=== PATIENT | male | born 1945 | race Caucasian/White ===

== ENCOUNTER 2020-02-13 10:23 | Outpatient (CLI) | payer OTHER, SELFPAY ==
[2020-02-13] VITALS (7 sets, daily range): PULSE 76–93; O2SAT 84–92
--- NOTE | 2020-02-13 11:51 | HOMEO2EVAL ---
Home Oxygen Evaluation RC: Home Oxygen (O2) Evaluation Start: 02/13/20 11:46 Freq: Status: Active Protocol: RPE Activity Type Activity Date Activity User E-Sign Co-Sign Detail Recorded Client Recorded Date Recorded By Document 02/13/20 11:00 KRM [email or web address] 02/13/20 11:51 KRM Document 02/13/20 11:02 KRM [email or web address] 02/13/20 11:51 KRM Document 02/13/20 11:03 KRM [email or web address] 02/13/20 11:51 KRM Document 02/13/20 11:05 KRM [email or web address] 02/13/20 11:51 KRM Document 02/13/20 11:07 KRM [email or web address] 02/13/20 11:51 KRM Document 02/13/20 11:09 KRM [email or web address] 02/13/20 11:51 KRM Document 02/13/20 11:14 KRM [email or web address] 02/13/20 11:51 KRM 02/13/20 02/13/20 02/13/20 11:00 11:02 11:03 Home O2 Evaluation Test Phase Resting Exercise Exercise Oxygen Delivery Room Air Room Air Nasal Cannula Oxygen Flow Rate (L/min) 1 Pulse Oximetry (90-100 %) 90 84 L 84 L Pulse Rate (60-100 beats/min) 84 76 76 Activity Tolerance Good Good Ambulation Distance (feet) Home Oxygen Evaluation Comments Treatment Charges O2 Evaluation 02/13/20 02/13/20 02/13/20 11:05 11:07 11:09 Home O2 Evaluation Test Phase Exercise Exercise Exercise Oxygen Delivery Nasal Cannula Nasal Cannula Nasal Cannula Oxygen Flow Rate (L/min) 2 3 4 Pulse Oximetry (90-100 %) 86 L 87 L 90 Pulse Rate (60-100 beats/min) 93 93 92 Activity Tolerance Good Good Good Ambulation Distance (feet) 600 Home Oxygen Evaluation Comments 4 with activity Treatment Charges 02/13/20 11:14 Home O2 Evaluation Test Phase Resting Oxygen Delivery Room Air Oxygen Flow Rate (L/min) Pulse Oximetry (90-100 %) 92 Pulse Rate (60-100 beats/min) 88 Activity Tolerance Ambulation Distance (feet) Home Oxygen Evaluation Comments Treatment Charges
--- NOTE | 2020-02-13 16:09 | P.PCNPFT_ITS ---
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 Spirometry: FEV1 is moderately decreased 64%, 2.09 L. FVC is 100%, normal. FEV1% is decreased 42%. There is no change with bronchodilator. Lung volumes: TLC is 90%, normal. RV is 63%. RV/TLC is not increased. No air trapping. Airway resistance is increased 305%. Diffusion: DLCO is moderately decreased 51%. Flow volume loop: Scooping of the expiratory limb. IMPRESSION: Moderate obstructive ventilatory impairment, increased airway resistance and moderate diffusion impairment without response to bronchodilator. There is no restriction noted, with normal total lung capacity. There is a history of asbestos exposure and silica exposure. Silica exposure can show an overlap of obstruction and restriction. Clinical correlation is recommended. Old studies in the system are not available for comparison. Penny Carreno MD
== END 2020-02-13 10:24 | disposition home or self-care (01) ==
PROVIDERS: Visit Provider Nurse Practitioner Family
DX: J44.9 Chronic obstructive pulmonary disease, unspecified (principal); R94.2 Abnormal results of pulmonary function studies
CPT/HCPCS: 94060; 94618; 94726; 94729

== ENCOUNTER 2020-02-21 10:08 | Outpatient (CLI) | payer OTHER, SELFPAY ==
--- NOTE | ~2020-02-21 | CT_ITS ---
EXAMINATION: CT lung screening DATE: 02/21/2020 10:48 INDICATION: Personal history of tobacco dependence, prior smoker with 100 pack year history TECHNIQUE: Computed tomography (CT) of the chest was performed without intravenous contrast. The dose -length product (DLP) was 152.77 mGy-cm. Automated exposure control and iterative reconstruction tech [employer] were employed. COMPARISON: 10/28/2018 FINDINGS: There is severe emphysema. There is a stable 3 mm nodule in the left major fissure. Scarrin g is noted in the lung apices. No new pulmonary nodule is identified. There is mild dependent atelect asis. No focal airspace opacities are identified. No pathologically enlarged thoracic lymph nodes are identified. The heart size is normal. Calcified pulmonary nodules and calcified bilateral hilar lymp h nodes are consistent with old granulomatous disease. Calcified coronary artery atherosclerosis is n oted. A compression fracture of the T11 vertebral body is new since the prior examination. 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 IMPRESSION: 1. Lung-RADS category 2S: Benign appearance or behavior. Continue annual screening with noncontrast l ow-dose chest CT in 12 months. 2. Interval T11 compression fracture. Reviewed, dictated and finalized at location A. IMPRESSION: 1. Lung-RADS category 2S: Benign appearance or behavior. Continue annual screen ing with noncontrast low-dose chest CT in 12 months. 2. Interval T11 compression fracture.
== END 2020-02-21 10:09 | disposition home or self-care (01) ==
PROVIDERS: PCP Nurse Practitioner; Visit Provider Internal Medicine Critical Care Medicine
DX: Z87.891 Personal history of nicotine dependence (principal)
CPT/HCPCS: G0297

== ENCOUNTER 2022-01-21 12:59 | Outpatient (CLI) | payer OTHER, SELFPAY ==
--- NOTE | ~2022-01-21 | CT_ITS ---
EXAMINATION: CT lung screening DATE: 01/21/2022 13:19 INDICATION: Personal history of nicotine dependence, prior smoker with 150 pack year history TECHNIQUE: Computed tomography (CT) of the chest was performed without intravenous contrast. The dose -length product (DLP) was 142.71 mGy-cm. Automated exposure control and iterative reconstruction tech [address] were employed. COMPARISON: 02/21/2020 FINDINGS: There is severe emphysema. Scarring is again noted in the lung apices. A stable 3 mm nodule is again noted in association with the left major fissure. No new pulmonary nodules are identified. No pleural effusion or pneumothorax. No pathologically enlarged thoracic lymph nodes are identified. The heart size is normal. Calcified pulmonary nodules and calcified bilateral hilar lymph nodes are c onsistent with old granulomatous disease. Calcified coronary artery atherosclerosis is noted. There a re chronic burst fractures of T12 and L1. A T11 compression fracture is stable since the comparison e xamination. IMPRESSION: 1. Lung-RADS category 2: Benign appearance or behavior. Continue annual screening with noncontrast lo w-dose chest CT in 12 months. Reviewed, dictated and finalized at location B. IMPRESSION: 1. Lung-RADS category 2: Benign appearance or behavior. Continue annual screeni ng with noncontrast low-dose chest CT in 12 months.
== END 2022-01-21 13:00 | disposition home or self-care (01) ==
PROVIDERS: PCP Physician Assistant; Visit Provider Nurse Practitioner Family
DX: Z12.2 Encounter for screening for malignant neoplasm of respiratory organs (principal); Z87.891 Personal history of nicotine dependence
CPT/HCPCS: 71271

== ENCOUNTER 2023-01-26 13:17 | Outpatient (CLI) | payer OTHER, SELFPAY ==
--- NOTE | ~2023-01-26 | CT_ITS ---
EXAMINATION: CT lung screening DATE: 01/26/2023 13:52 INDICATION: Personal history nicotine dependence, prior smoker with 180 pack year history TECHNIQUE: Computed tomography (CT) of the chest was performed without intravenous contrast. The dose -length product (DLP) was 160.02 mGy-cm. Automated exposure control and iterative reconstruction tech [employer] were employed. COMPARISON: 01/21/2022 FINDINGS: There is severe emphysema. There is scarring of the lung apices. There are new peripheral a irspace opacities in the right upper lobe which may be infectious or inflammatory. No pleural effusio n or pneumothorax. No pathologically enlarged thoracic lymph nodes are identified. The heart size is normal. Calcified pulmonary nodules and calcified bilateral hilar lymph nodes are consistent with old granulomatous disease. There is calcified coronary artery atherosclerosis. Again noted are chronic b urst fractures of T11 and L1 and a compression fracture of T12. And L2 compression fracture is also n oted. IMPRESSION: 1. Lung-RADS category 0: Incomplete. Follow-up low-dose CT in one three months is recommended. Reviewed, dictated and finalized at location B.
== END 2023-01-26 13:18 | disposition home or self-care (01) ==
PROVIDERS: PCP Student in an Organized Health Care Education/Training Program; Visit Provider Physician Assistant
DX: Z12.2 Encounter for screening for malignant neoplasm of respiratory organs (principal); Z87.891 Personal history of nicotine dependence
CPT/HCPCS: 71271

== ENCOUNTER 2023-03-26 10:49 | Outpatient (CLI) | payer OTHER, SELFPAY ==
--- NOTE | ~2023-03-26 | CT_ITS ---
CT Scan of the Chest without Contrast: Clinical Indication: Emphysema Technique: Contiguous sections were acquired throughout the chest without intravenous contrast. Dose reduction technique was used on this scan by utilizing automated exposure control and iterative recon struction technique. The dose-length product (DLP) was 225.41 mGy-cm. COMPARISON: 01/26/2023 Findings: There is no evidence of any significant mediastinal, hilar or axillary lymphadenopathy. Small shotty mediastinal lymph nodes are similar to prior exam. Small calcified lymph nodes are also present. The mediastinal soft tissues appear normal. There is no evidence of pleural or pericardial effusion. There is severe emphysema with biapical scarring. Images through the upper abdomen reveal no abnormalities. There are compression fractures of T11, T12 , L1, and probably L2. Impression: Severe emphysema with biapical scarring. Compression fractures of T11, T12, L1, and L2. Reviewed, dictated and finalized at [facility]. Impression: Severe emphysema with biapical scarring. Compression fractures of T11, T12, L1, and L2.
== END 2023-03-26 10:50 | disposition home or self-care (01) ==
PROVIDERS: PCP Student in an Organized Health Care Education/Training Program; Visit Provider Physician Assistant
DX: J43.9 Emphysema, unspecified (principal); R91.8 Other nonspecific abnormal finding of lung field
CPT/HCPCS: 71250

== ENCOUNTER 2023-04-22 08:26 | Outpatient (CLI) | payer OTHER, SELFPAY ==
[2023-04-22 08:25] VITALS: PULSE 80; O2SAT 90
[2023-04-22 08:45] VITALS: PULSE 80; O2SAT 92
[2023-04-22 08:55] VITALS: PULSE 85; O2SAT 91
--- NOTE | 2023-04-22 08:56 | HOMEO2EVAL ---
Evaluation was performed at [facility] Home Oxygen Evaluation RC: Home Oxygen (O2) Evaluation Start: 04/22/23 08:54 Freq: Status: Active Protocol: RPE Activity Type Activity Date Activity User E-sign Co-sign Detail Recorded Client Recorded Date Recorded By Document 04/22/23 08:25 [facility] [email or web address] 04/22/23 08:56 [facility] Document 04/22/23 08:45 [facility] [email or web address] 04/22/23 08:56 [facility] Document 04/22/23 08:55 [facility] [email or web address] 04/22/23 08:56 [facility] 04/22/23 04/22/23 04/22/23 08:25 08:45 08:55 Home O2 Evaluation [Oxygen] -Test Phase Resting Exercise Resting -Oxygen Delivery Room Air Room Air Room Air [Pulse Oximetry] -Pulse Oximetry (90-100 %) 90 92 91 [Pulse Rate] -Pulse Rate (60-100 beats/min) 80 80 85 [Charges] -Treatment Charges O2 Evaluation - Outpatient
--- NOTE | 2023-04-22 08:57 | PCRCNOTE ---
HOME O2 EVAL COMPLETE. PATIENT DOES NOT REQUIRE HOME O2 AT THIS TIME.
== END 2023-04-22 08:27 | disposition home or self-care (01) ==
PROVIDERS: PCP Student in an Organized Health Care Education/Training Program; Visit Provider Nurse Practitioner Family
DX: J96.10 Chronic respiratory failure, unspecified whether with hypoxia or hypercapnia (principal)
CPT/HCPCS: 94618

== ENCOUNTER 2024-04-05 09:36 | Outpatient (CLI) | payer OTHER, SELFPAY ==
--- NOTE | ~2024-04-05 | CT_ITS ---
EXAMINATION:CT lung screening DATE: 04/05/2024 09:51 INDICATION: Personal history of nicotine dependence. Smoker who quit 14 years ago with 150 pack year history. TECHNIQUE: Computed tomography (CT) of the chest was performed without intravenous contrast. Automate d exposure control and iterative reconstruction technique were employed. The dose-length product (DLP ) was 149.32 mGy-cm. COMPARISON: Chest CT 03/26/2023 FINDINGS: There is stable mild scarring in the upper lobes. There is severe emphysema. There is mild atelectasis bilaterally. There is a 3 mm nodule at left major fissure. Calcified pulmonary nodules an d calcified hilar and mediastinal lymph nodes are consistent with old granulomatous disease. No pleur al effusion. The heart size is normal. There are coronary artery calcifications. No pericardial effus ion. There is severe cervical spondylosis, moderate thoracic spondylosis, and severe lumbar spondylos is. There are chronic fractures of multiple vertebral bodies. IMPRESSION: 1. Lung-RADS category 2: Benign appearance or behavior. Continue annual screening with noncontrast lo w-dose chest CT in 12 months. Reviewed, dictated and finalized at location A. IMPRESSION: 1. Lung-RADS category 2: Benign appearance or behavior. Continue annual screeni ng with noncontrast low-dose chest CT in 12 months.
== END 2024-04-05 09:37 | disposition home or self-care (01) ==
LOC: ANHIMG 09:36
PROVIDERS: PCP Student in an Organized Health Care Education/Training Program; Visit Provider Nurse Practitioner Family
DX: Z12.2 Encounter for screening for malignant neoplasm of respiratory organs (principal); Z87.891 Personal history of nicotine dependence
CPT/HCPCS: 71271